=== PATIENT | male | born 1950 | race Caucasian/White ===

== ENCOUNTER 2024-07-08 11:37 | Emergency (ER) | payer MEDICARE, OTHER ==
[~2024-07-08] VITALS: Ht 172.7 cm; Wt 70.8 kg
[2024-07-08] MEDS ORDERED: LIDOCAINE 2% JEL UROJET 10 ML MM ONE (12:01)
[2024-07-08] MEDS ORDERED: CEFD300C3 PO (12:18)
[2024-07-08] MEDS: LIDOCAINE 2% JEL UROJET 10 ML MM ONE (13:03)
[2024-07-08 13:10] VITALS: BP 161/81; TEMP 98; O2SAT 97
[2024-07-08 13:26] LABS: APPEARANCE,URINE SLIGHTLY CLOUDY (CLEAR); BILIRUBIN,URINE NEGATIVE (NEGATIVE); BLOOD, URINE 3+ Ery/uL (NEGATIVE); COLOR,URINE GREEN (YELLOW); KETONES,URINE 1+ mg/dL (NEGATIVE); LEUKOCYTE ESTERASE ,URINE NEGATIVE (NEGATIVE); NITRITE, URINE POSITIVE (NEGATIVE); PH,URINE 5.5 (5.0-8.0); PROTEIN,URINE 1+ mg/dl (NEGATIVE); UGLUCOSE 3+ mg/dL (NEGATIVE); UROBILINOGEN,URINE 0.2 EU/dL (0.2)
[2024-07-08 13:33] LABS: ADD URINE CULTURE YES; BACTERIA,URINE Moderate /HPF (None Seen); RBC,URINE 21-50 /HPF (0-2); SQUAMOUS EPITHELIAL CELL,UR Rare /HPF (None Seen)
== END 2024-07-08 13:10 | disposition home or self-care (01) ==
LOC: ER 11:37
DX: R33.9 Retention of urine, unspecified (principal); E11.9 Type 2 diabetes mellitus without complications; I10 Essential (primary) hypertension; N40.0 Benign prostatic hyperplasia without lower urinary tract symptoms
CPT/HCPCS: 99284; 51702; 87086; 81001; J3490